=== PATIENT | male | born 1930 | race Caucasian/White ===

== ENCOUNTER 2022-01-31 18:30 | Inpatient (IN) | payer MEDICARE, OTHER ==
[~2022-01-31] VITALS: Ht 172.7 cm; Wt 77.1 kg
[2022-01-31] MEDS ORDERED: LISINOPRIL (18:40)
[2022-01-31] MEDS ORDERED: NAMENDA (18:40)
--- NOTE | 2022-01-31 18:43 | NUR ---
PT IS IN ROOM #2A. DR DORSEY EVALUATED THE PT.
[2022-01-31] MEDS ORDERED: TDAP DIPH,PERTUSS,TET VAC/PF 0.5 ML DISP.SYRIN IM ONE ×2 (19:00→19:36)
--- NOTE | 2022-01-31 19:15 | NUR ---
received patient awake , neck coolar in placed , abrasions on left forehead , and abrasions on right hand , on room air , pacemaker v pacing , denies paoin at this time , ekg done .
[2022-01-31] MEDS ORDERED: CEFTRIAXONE 1 G VIAL ONE (19:32)
[2022-01-31 19:42] LABS: HEMATOCRIT 47.7 % (36.7-47.1); MEAN CORPUSCULAR HEMOGLOBIN 31.9 uug (23.8-33.4); MEAN CORPUSCULAR VOLUME 93.8 fL (73.0-96.2); PLATELET COUNT (AUTO) 172 K/uL (152-348)
[2022-01-31 19:55] LABS: CARBON DIOXIDE 24 mmol/L (21-32); CHLORIDE 104 mmol/L (98-107); CREATININE 1.2 mg/dL (0.6-1.3); GLUCOSE 123 mg/dL (74-106); POTASSIUM 4.1 mmol/L (3.5-5.1); UREA NITROGEN, BLOOD 19 mg/dL (7-18)
--- NOTE | 2022-01-31 20:00 | NUR ---
doctor removed the neck collar
[2022-01-31 20:02] LABS: ETHANOL < 3 MG/DL (0-0)
[2022-01-31 20:04] LABS: ALANINE AMINOTRANSFERASE 24 U/L (16-63); ALKALINE PHOSPHATASE 52 U/L (50-136); ASPARTATE AMINOTRANSFERASE 18 U/L (15-37); BILIRUBIN,DIRECT 0.2 mg/dL (0.0-0.2); BILIRUBIN,TOTAL 0.7 mg/dL (0.2-1.0); TOTAL PROTEIN, SERUM 7.1 g/dL (6.4-8.2)
--- NOTE | 2022-01-31 20:47 | NUR ---
carlos lawler is called per dr calix
--- NOTE | 2022-01-31 20:51 | NUR ---
dr calix spoke to carlos lawler regarding the patient
[2022-01-31] MEDS ORDERED: HYDROCODONE/APAP 10-325 MG TABLET PO PRN (21:00)
[2022-01-31] MEDS ORDERED: HYDROMORPHONE 1 MG/1 ML DISP.SYRIN IV PRN (21:00)
[2022-01-31] MEDS ORDERED: ONDANSETRON 4 MG/2 ML VIAL IV PRN (21:00)
[2022-01-31] MEDS ORDERED: REMEDY ESSENTIAL ZINC PASTE 113 GM TP PRN (21:00)
[2022-01-31] MEDS ORDERED: ACETAMINOPHEN 325 MG TABLET PO PRN (21:00)
[2022-01-31] MEDS ORDERED: MAGNESIUM HYDROXIDE 30 ML LIQUID UDC PO PRN (21:00)
--- NOTE | 2022-01-31 21:30 | NUR ---
gave report to grecia , history , medication given , status of the patient , labs and vs
--- NOTE | 2022-01-31 22:00 | NUR ---
transferred the patient to room 307 accompanied by nurse
--- NOTE | 2022-01-31 22:00 | NUR ---
Patient admitted to med-surg unit.Dx.Gen weakness s/p fall.Patient alert to himself only.Able to follow simple commands.No SOB. Denies pain .NO facial grimaces of discomfort at this time.Incontinent to both B & B.Voided well.Skin tear noted on right hand .Left forehead abrasion. Skin care provided.Inserted IV line on Right FA 22g . Started IVF infusing well.Bed alarm on. Fall precaution and safety measures in place.Will continue to monitor.
[2022-01-31] MEDS: IV NS 1000 ML 1,000 ML IV PRN (22:03)
[2022-01-31 22:35] VITALS: BP 137/80
[2022-01-31] MEDS: MEMANTINE HCL 5 MG TABLET PO SCH (22:51)
[2022-02-01 04:23] VITALS: BP 157/77
[2022-02-01 06:14] LABS: *BILIRUBIN,URIN NEGATIVE (NEGATIVE); *BLOOD, URINE NEGATIVE (NEGATIVE); *CLARITY,URINE CLEAR (CLEAR); *COLOR,URINE YELLOW (YELLOW); *KETONES,URINE NEGATIVE (NEGATIVE); *UROBILINOGEN,URINE 0.2 E.U./dl (NORMAL); LEUKOCYTE ESTERASE ,URINE TRACE (NEGATIVE); NITRITE, URINE NEGATIVE (NEGATIVE); UGLUCOSE NEGATIVE (NEGATIVE)
[2022-02-01 06:28] LABS: BACTERIA,URINE NONE SEEN /HPF (NONE SEEN); RBC,URINE 0-3 /HPF (0-3); SQUAMOUS EPITHELIAL CELL,UR NONE SEEN /HPF (NONE SEEN)
[2022-02-01 06:48] LABS: *AMPHETAMINE, URINE NEGATIVE (NEGATIVE); *CANNABINOID, URINE NEGATIVE (NEGATIVE); *COCCAINE, URINE NEGATIVE (NEGATIVE); *OPIATE, URINE NEGATIVE (NEGATIVE); *PHENCYCLIDINE SCREEN,URINE NEGATIVE (NEGATIVE)
[2022-02-01 06:57] LABS: HEMATOCRIT 47.8 % (36.7-47.1); MEAN CORPUSCULAR HEMOGLOBIN 31.9 uug (23.8-33.4); MEAN CORPUSCULAR VOLUME 93.8 fL (73.0-96.2); PLATELET COUNT (AUTO) 170 K/uL (152-348)
[2022-02-01 07:15] LABS: CREATININE 1.1 mg/dL (0.6-1.3); MAGNESIUM 2.4 mg/dL (1.8-2.4); PHOSPHOROUS 2.3 mg/dL (2.5-4.9); POTASSIUM 4.2 mmol/L (3.5-5.1)
[2022-02-01] MEDS: LISINOPRIL 10 MG TABLET PO SCH (09:00)
[2022-02-01 09:48] VITALS: BP_SYST 132; BP_SYST 134; BP_SYST 147; BP_DIAS 76; BP_DIAS 80
[2022-02-01] MEDS: IV NS 1000 ML 1,000 ML IV PRN ×2 (10:58→23:51)
[2022-02-01] MEDS: PANTOPRAZOLE SODIUM 40 MG VIAL IV SCH ×2 (10:59→21:04)
[2022-02-01 11:15] VITALS: BP 119/82
[2022-02-01] MEDS: CEFTRIAXONE 1 G in IV DEXTROSE 5% 50 ML IV SCH (13:02)
[2022-02-01] MEDS ORDERED: CEFTRIAXONE 1 G in IV DEXTROSE 5% 50 ML IV SCH (14:00)
[2022-02-01 15:06] VITALS: BP 120/59
[2022-02-01] MEDS ORDERED: NEUTRA PHOS PACKET PO ONE (15:15)
--- NOTE | 2022-02-01 19:45 | NUR ---
ROUNDS MADE PATIENT IN BED RESTING ,NO S/S OF PAIN. RIGHT FOREARM W/ N/S AT 75 ML/HR INFUSING WELL . ABRASION TO THE FOREHEAD CDI , RIGHT HAND SKIN TEAR DRY AND LEFT FOREARM SKIN TEAR DRY TAMIKO. CALL LIGHT WITH IN REACH AND ADVISED TO CALL FOR HELP .
[2022-02-01 20:00] VITALS: BP 132/71
--- NOTE | 2022-02-01 20:30 | NUR ---
BED ALARM WAS ON ,WENT TO PATIENTS ROOM PATIENT TRYING TO GET OOB TO GO TO THE BATHROOM . ESCORTED TO THE BATHROOM PATIENT URINATED ADVISED NEXT TIMES TO USED THE CALL LIGHT AND TO CALL FOR HELP .
--- NOTE | 2022-02-01 21:00 | NUR ---
DUE MEDICATION GIVEN AND PATIENT TOLERATED MEDS WITH WATER. HOB UP AND ASPIRATION PRECAUTION OBSERVED ,
[2022-02-01] MEDS: MEMANTINE HCL 5 MG TABLET PO SCH (21:04)
--- NOTE | 2022-02-01 23:54 | NUR ---
ESCORTED PATIENT TO THE BATHROOM ABLE TO AMBULATE BUT NEEDS ASSISTANCE PATIENT IS WEAK TO HIS BILATERAL LOWER LEGS
--- NOTE | 2022-02-02 02:00 | NUR ---
SLEEPING IN BED NO S/S OF DISTRESS,BREATHING EVEN UNLABORED .
--- NOTE | 2022-02-02 03:30 | NUR ---
BED ALARM ON WENT TO CHECKED PATIENT ESCORTED PATIENT TO THE BATHROOM UNSTEADY F GAIT NEEDS ASSISTANCE TO THE BATHROOM .
[2022-02-02 04:10] VITALS: BP 128/98
[2022-02-02 06:29] LABS: HEMATOCRIT 45.2 % (36.7-47.1); MEAN CORPUSCULAR HEMOGLOBIN 32.6 uug (23.8-33.4); MEAN CORPUSCULAR VOLUME 93.5 fL (73.0-96.2); PLATELET COUNT (AUTO) 153 K/uL (152-348)
[2022-02-02 06:34] LABS: CREATININE 1.2 mg/dL (0.6-1.3); POTASSIUM 4.2 mmol/L (3.5-5.1)
[2022-02-02] MEDS: PANTOPRAZOLE SODIUM 40 MG VIAL IV SCH (09:12)
[2022-02-02] MEDS: LISINOPRIL 10 MG TABLET PO SCH (09:26)
[2022-02-02 12:00] VITALS: BP 136/62
--- NOTE | 2022-02-02 12:14 | NUR ---
WOUND CARE CONSULT: PT SEEN FOR RT HAND AND WRIST SKIN TEARS, PRESENT ON ADMISSION. RECOMMENDATIONS MADE FOR SKIN PROTECTION AND WOUND CARE. DISCUSSED WITH NURSING STAFF. MD IN AGREEMENT WITH PLAN OF CARE.
[2022-02-02] MEDS: CEFTRIAXONE 1 G in IV DEXTROSE 5% 50 ML IV SCH (13:44)
[2022-02-02 16:00] VITALS: BP 123/71
[2022-02-02] MEDS: PANTOPRAZOLE SODIUM 40 MG TABLET.DR PO SCH (16:36)
--- NOTE | 2022-02-02 18:20 | NUR ---
pt is a/o x 4, indian speaking. Hand dressing has been changed per wound consult order. Remmoved IV from affected hand to avoid additional discomfort. Pt has midline on left upper arm, patent and intact. Pt is ambulatory with stand by assist, bed alarm on.
[2022-02-02 20:00] VITALS: BP 113/65
[2022-02-02] MEDS: MEMANTINE HCL 5 MG TABLET PO SCH (20:21)
[2022-02-02] MEDS: IV NS 1000 ML 1,000 ML IV PRN (23:17)
[2022-02-03 04:00] VITALS: BP 161/81
[2022-02-03 05:44] VITALS: BP 149/79
[2022-02-03 06:02] LABS: HEMATOCRIT 46.2 % (36.7-47.1); MEAN CORPUSCULAR HEMOGLOBIN 32.1 uug (23.8-33.4); MEAN CORPUSCULAR VOLUME 93.6 fL (73.0-96.2); PLATELET COUNT (AUTO) 155 K/uL (152-348)
[2022-02-03] MEDS: PANTOPRAZOLE SODIUM 40 MG TABLET.DR PO SCH (06:07)
[2022-02-03] MEDS: LISINOPRIL 10 MG TABLET PO SCH (10:26)
[2022-02-03] MEDS ORDERED: PANT40TA49 PO (11:15)
[2022-02-03] MEDS ORDERED: CEPH500C2 PO (11:15)
[2022-02-03 12:00] VITALS: BP 136/66
[2022-02-03] MEDS: CEFTRIAXONE 1 G in IV DEXTROSE 5% 50 ML IV SCH (13:21)
--- NOTE | 2022-02-03 15:05 | NUR ---
Patient's tried to elope with the patient. She was instructed many times today that an ambulance is coming at 1600 to take the patient home, however still proceeded to take the patient to the lobby. She was intercepted by the security and returned to the room. At this time the IV was removed and she is refusing to have pictures of the skin taken. Charge nurse and blood bank supervisor aware. Will monitor for further attempts to elope until the patient is picked up by ambulance.
[2022-02-03 16:00] VITALS: BP 138/77
--- NOTE | 2022-02-03 16:29 | NUR ---
Patient discharged to home with home health via ambulance. No s/s of discomfort or distress. IV removed. Refused to have dressing to right hand changed. Did not allow any photographs of skin before discharge. Discharge/follow up instructions discussed with . Walker and all personal belongings sent with the patient.
== END 2022-02-03 16:25 | disposition home health service (06) | DRG 689 ==
LOC: ER 18:33 → TELE3 21:25 → MEDSURG3 23:50
PROVIDERS: ADMIT Nurse Practitioner Acute Care; ATTEND Nurse Practitioner Acute Care
PROC: 05HC33Z Insertion of Infusion Device into Left Basilic Vein, Percutaneous Approach (ICD-10-PCS; principal; 2022-02-02)
DX: N39.0 Urinary tract infection, site not specified (principal); G93.41 Metabolic encephalopathy; I48.20 Chronic atrial fibrillation, unspecified; K92.2 Gastrointestinal hemorrhage, unspecified; R29.6 Repeated falls; I95.1 Orthostatic hypotension; B96.89 Other specified bacterial agents as the cause of diseases classified elsewhere; Z95.0 Presence of cardiac pacemaker; S61.401A Unspecified open wound of right hand, initial encounter; W18.30XA Fall on same level, unspecified, initial encounter; Y93.E8 Activity, other personal hygiene; Y92.091 Bathroom in other non-institutional residence as the place of occurrence of the external cause; N40.0 Benign prostatic hyperplasia without lower urinary tract symptoms; I25.10 Atherosclerotic heart disease of native coronary artery without angina pectoris; I11.9 Hypertensive heart disease without heart failure; F03.90 Unspecified dementia, unspecified severity, without behavioral disturbance, psychotic disturbance, mood disturbance, and anxiety; R79.89 Other specified abnormal findings of blood chemistry; M50.30 Other cervical disc degeneration, unspecified cervical region; M48.02 Spinal stenosis, cervical region; M19.041 Primary osteoarthritis, right hand; Z86.73 Personal history of transient ischemic attack (TIA), and cerebral infarction without residual deficits
CPT/HCPCS: 36415; 70450; 71045; 72125; 73130; 83605; 83735; 84100; 84484; 85025; 87086; 90715; 93005; 93307; 97161; A4663; A6209; C1758; C9113; G0378; G0480; J0696; J1170; J7060